=== PATIENT | female | born 1935 | race Caucasian/White ===

== ENCOUNTER 2018-02-12 13:00 | Inpatient (IN) | payer OTHER, MEDICARE ==
[~2018-02-12] VITALS: Ht 157.5 cm; Wt 42.7 kg
--- NOTE | 2018-02-12 13:33 | PD ---
HPI Chief Complaint: Perera act Time Seen by Provider: 13:23 Travel History International Travel<30 days: No Contact w/Intl Traveler<30days: No Traveled to known affect area: No History of Present Illness HPI The patient was seen and examined in the presence of the nurse. This is an 82- year-old demented patient who is brought in under police Perera act. According to the daughter, she made suicidal statements. Patient appears quite demented and is not able to provide any useful history or review of systems. She denies any specific medical complaint. [facility] Social History Alcohol Use: No Tobacco Use: No Substance Use: No Allergies-Medications (Allergen,Severity, Reaction): Coded Allergies: No Known Allergies (Unverified , 02/12/18) Reported Meds & Prescriptions Reported Meds & Active Scripts Active Reported Aspirin 81 Mg Chew 81 Mg CHEW ONCE Review of Systems ROS Limitations: Uncooperative, Psychotic, Poor Historian Physical Exam Narrative GENERAL: Feisty elderly well-developed patient in no apparent distress. SKIN: Focused skin assessment reveals no rash and nodules. Skin is Warm and dry. HEAD: Atraumatic. Normocephalic. EYES: Pupils equal and round. No scleral icterus. No injection or drainage. ENT: No nasal bleeding or discharge. Mucous membranes pink and moist. NECK: Trachea midline. No JVD. CARDIOVASCULAR: Regular rate and rhythm. No murmur appreciated. RESPIRATORY: No accessory muscle use. Clear to auscultation. Breath sounds equal bilaterally. GASTROINTESTINAL: Abdomen soft, non-tender, nondistended. Hepatic and splenic margins not palpable. MUSCULOSKELETAL: No obvious deformities. No clubbing. No cyanosis. No edema. NEUROLOGICAL: Awake and alert. No obvious cranial nerve deficits. Motor grossly within normal limits. Normal speech. PSYCHIATRIC: Agitated mood and affect; insight and judgment poor. Data Data Last Documented VS Vital Signs Date Time Temp Pulse Resp B/P (MAP) Pulse Ox O2 Delivery O2 Flow Rate FiO2 02/12/18 13:36 97.1 97 16 165/77 (106) 99 Orders Orders Complete Blood Count With Diff (02/12/18 13:27) Comprehensive Metabolic Panel (02/12/18 13:27) Thyroid Stimulating Hormone (02/12/18 13:27) Urinalysis - C+S If Indicated (02/12/18 13:27) Iv Access Insert/Monitor (02/12/18 13:27) Cath For Specimen (02/12/18 13:27) Psych Screen (02/12/18 13:27) Drug Screen, Random Urine (02/12/18 13:27) Alcohol (Ethanol) (02/12/18 13:27) Labs Laboratory Tests Test 02/12/18 13:30 02/12/18 14:20 White Blood Count 8.3 TH/MM3 Red Blood Count 4.59 MIL/MM3 Hemoglobin 14.6 GM/DL Hematocrit 43.8 % Mean Corpuscular Volume 95.4 FL Mean Corpuscular Hemoglobin 31.8 PG Mean Corpuscular Hemoglobin Concent 33.3 % Red Cell Distribution Width 13.8 % Platelet Count 235 TH/MM3 Mean Platelet Volume 9.4 FL Neutrophils (%) (Auto) 74.6 % Lymphocytes (%) (Auto) 14.3 % Monocytes (%) (Auto) 10.3 % Eosinophils (%) (Auto) 0.4 % Basophils (%) (Auto) 0.4 % Neutrophils # (Auto) 6.2 TH/MM3 Lymphocytes # (Auto) 1.2 TH/MM3 Monocytes # (Auto) 0.9 TH/MM3 Eosinophils # (Auto) 0.0 TH/MM3 Basophils # (Auto) 0.0 TH/MM3 CBC Comment DIFF FINAL Differential Comment Blood Urea Nitrogen 21 MG/DL Creatinine 0.69 MG/DL Random Glucose 106 MG/DL Total Protein 8.1 GM/DL Albumin 3.9 GM/DL Calcium Level 9.3 MG/DL Alkaline Phosphatase 85 U/L Aspartate Amino Transf (AST/SGOT) 46 U/L Alanine Aminotransferase (ALT/SGPT) 55 U/L Total Bilirubin 0.3 MG/DL Sodium Level 139 MEQ/L Potassium Level 4.0 MEQ/L Chloride Level 105 MEQ/L Carbon Dioxide Level 27.2 MEQ/L Anion Gap 7 MEQ/L Estimat Glomerular Filtration Rate 81 ML/MIN Thyroid Stimulating Hormone 3rd Gen 1.280 uIU/ML Ethyl Alcohol Level LESS THAN 3 MG/DL Urine Color YELLOW Urine Turbidity CLEAR Urine pH 7.0 Urine Specific [place] 1.008 Urine Protein NEG mg/dL Urine Glucose (UA) NEG mg/dL Urine Ketones NEG mg/dL Urine Occult Blood NEG Urine Nitrite NEG Urine Bilirubin NEG Urine Urobilinogen LESS THAN 2.0 MG/DL Urine Leukocyte Esterase NEG Urine RBC 1 /hpf Urine WBC LESS THAN 1 /hpf Urine Mucus FEW /lpf Microscopic Urinalysis Comment CULT NOT INDICATED Urine Opiates Screen NEG Urine Barbiturates Screen NEG Urine Amphetamines Screen NEG Urine Benzodiazepines Screen NEG Urine Cocaine Screen NEG Urine Cannabinoids Screen NEG MDM Medical Decision Making Medical Screen Exam Complete: Yes Emergency Medical Condition: Yes Medical Record Reviewed: Yes Differential Diagnosis Depression with psychotic features, exacerbation of dementia, suicidal ideation Narrative Course I have reviewed the patient's electronic medical record. I reviewed the Perera act form I've ordered medical clearance workup to include labs and urine studies Psych screen has been ordered as she presents under Perera act CBC and metabolic studies are normal TSH is normal Alcohol and tox screen are negative Patient is is medically stable as I can make her. She is awaiting psychiatric evaluation Diagnosis Primary Impression: Dementia with psychosis Jonn Ahn MD Feb 12, 2018 13:33
[2018-02-12 13:36] VITALS: BP 165/77; PULSE 97; RESP 16; TEMP 97.1; O2SAT 99
[2018-02-12 14:09] LABS: AUTOMATED NEUTROPHIL # 6.2 TH/MM3 (1.8-7.7); BASOPHIL % 0.4 % (0.0-2.0); EOSINOPHIL % 0.4 % (0.0-4.0); HEMATOCRIT 43.8 % (35.0-46.0); HEMOGLOBIN 14.6 GM/DL (11.6-15.3); LYMPH % 14.3 % (9.0-44.0); LYMPHOCYTE # 1.2 TH/MM3 (1.0-4.8); MEAN CELL VOLUME 95.4 FL (80.0-100.0); MEAN CORPUSCULAR HEMOGLOBIN 31.8 PG (27.0-34.0); MEAN CORPUSCULAR HGB CONC 33.3 % (32.0-36.0); MEAN PLATELET VOLUME 9.4 FL (7.0-11.0); MONO % 10.3 % (0.0-8.0); MONOCYTE # 0.9 TH/MM3 (0-0.9); NEUT % 74.6 % (16.0-70.0); PLATELET COUNT 235 TH/MM3 (150-450); RED BLOOD COUNT 4.59 MIL/MM3 (4.00-5.30); RED CELL DISTRIBUTION WIDTH 13.8 % (11.6-17.2); WHITE BLOOD COUNT 8.3 TH/MM3 (4.0-11.0)
[2018-02-12 14:26] LABS: ALBUMIN 3.9 GM/DL (3.4-5.0); ALT (GPT) 55 U/L (10-53); AST (GOT) 46 U/L (15-37); BICARBONATE 27.2 MEQ/L (21.0-32.0); BLOOD UREA NITROGEN 21 MG/DL (7-18); CALCIUM 9.3 MG/DL (8.5-10.1); CHLORIDE 105 MEQ/L (98-107); CREATININE 0.69 MG/DL (0.50-1.00); GLOMERULAR FILTRATION RATE 81 ML/MIN (>89); GLUCOSE,RANDOM 106 MG/DL (74-106); SODIUM (NA) 139 MEQ/L (136-145)
[2018-02-12 14:36] LABS: ALKALINE PHOSPHATASE 85 U/L (45-117); TOTAL BILIRUBIN ADULT 0.3 MG/DL (0.2-1.0); TOTAL PROTEIN 8.1 GM/DL (6.4-8.2)
[2018-02-12 14:44] LABS: BILIRUBIN, URINE NEG (NEG); BLOOD, URINE NEG (NEG); GLUCOSE,URINE NEG (NEG); KETONE, URINE NEG (NEG); MUCUS URINE FEW /lpf (OCC); NITRITE,URINE NEG (NEG); URINE COLOR YELLOW (YELLW/STRAW); URINE LEUKOCYTE ESTERASE NEG (NEG)
[2018-02-12] MEDS ORDERED: ASPI-516 CHEW (15:41)
[2018-02-13 04:29] VITALS: BP 170/82; PULSE 87; RESP 18; O2SAT 97
[2018-02-13 05:15] VITALS: BP 142/72; PULSE 60; RESP 16; TEMP 98.5; O2SAT 98
[2018-02-13] MEDS ORDERED: ACETAMINOPHEN 325 MG TAB PO PRN (06:00)
[2018-02-13] MEDS ORDERED: diphenhydrAMINE HCL 50 MG CAP PO PRN (06:00)
[2018-02-13] MEDS ORDERED: diphenhydrAMINE HCL 50 MG/ML VIAL IM PRN (06:00)
[2018-02-13] MEDS ORDERED: diphenhydrAMINE HCL 50 MG/ML VIAL - HS PRN IM (06:00)
[2018-02-13] MEDS ORDERED: MAGNESIUM HYDROXIDE SUSP 30 ML CUP PO PRN (06:00)
[2018-02-13] MEDS ORDERED: ALUMINUM/MAGNESIUM/SIMETH 30 ML CUP PO PRN (06:00)
[2018-02-13] MEDS ORDERED: diphenhydrAMINE HCL 50 MG CAP - HS PRN PO (06:00)
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
[2018-02-13 18:52] VITALS: BP 124/66; PULSE 73; RESP 16; TEMP 98.6; O2SAT 96
[2018-02-14 06:09] VITALS: BP 156/70; PULSE 72; RESP 16; TEMP 97.8; O2SAT 97
[2018-02-14] MEDS ORDERED: PILL SPLITTER OTHER PRN (13:00)
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
[2018-02-14 18:31] VITALS: BP 140/72; PULSE 76; RESP 18; TEMP 98; O2SAT 98
[2018-02-14] MEDS: QUEtiapine FUMARATE 25 MG TAB PO SCH (21:00)
[2018-02-15 06:26] VITALS: BP 147/75; PULSE 70; RESP 17; TEMP 97.5; O2SAT 98
[2018-02-15] MEDS: QUEtiapine FUMARATE 25 MG TAB PO SCH ×2 (09:00→20:41)
[2018-02-15 09:05] LABS: BICARBONATE 26.5 MEQ/L (21.0-32.0); BLOOD UREA NITROGEN 15 MG/DL (7-18); CALCIUM 9.2 MG/DL (8.5-10.1); CHLORIDE 106 MEQ/L (98-107); CREATININE 0.77 MG/DL (0.50-1.00); GLOMERULAR FILTRATION RATE 72 ML/MIN (>89); GLUCOSE,RANDOM 161 MG/DL (74-106); SODIUM (NA) 140 MEQ/L (136-145)
[2018-02-15 09:06] LABS: CHOLESTEROL 224 MG/DL (120-200)
[2018-02-15 09:10] LABS: CHOLESTEROL/ HDL RATIO 2.94 RATIO; HDL CHOLESTEROL 76.1 MG/DL (40.0-60.0); LDL CHOLESTEROL 136 MG/DL (0-99); TRIGLYCERIDES 62 MG/DL (42-150)
--- NOTE | 2018-02-15 13:12 | PD.CONS ---
HPI Service [facility] Consult Requested By Reason for Consult History of dementia, ID 10 years ago with bypass, elevated BP Primary Care Physician Unknown Diagnoses: History of Present Illness 82-year-old female Perera acted by police and brought to hospital after patient reportedly made suicidal statements who are witnessed by daughter. Patient has history of underlying dementia, ID 10 years ago, status post CABG. [facility] has been consulted due to her cardiac history and elevated BP. Patient is seen and examined sitting up to chair. She is awake and alert, oriented to self reports he does not know what year it is or the date. She denies any pain or discomfort , denies any chest pain, cough, shortness of breath, fevers, chills, nausea, vomiting, diarrhea, headache, dizziness or lightheadedness. She has a very poor historian and is truly unable to provide any reliable history. Discussed with nurse who is made contact with daughter to verify list of medications. Patient apparently has only been on low-dose aspirin following ID as she has refused to take any other medications. Review of Systems Except as stated in HPI: all other systems reviewed are Neg Past Family Social History Allergies: Coded Allergies: No Known Allergies (Unverified , 02/12/18) Past Medical History Gathered from EMR Dementia ID Past Surgical History Gathered from EMR CABG Reported Medications Reported Meds & Active Scripts Active Reported Aspirin 81 Mg Chew 81 Mg CHEW ONCE Active Ordered Medications Current Medications Medications (Trade) Dose Ordered Sig/Esme Route Start Time Stop Time Status Last Admin (Atarax) 50 mg Q6H PRN PO 02/13/18 06:00 (Benadryl) 50 mg Q6H PRN PO 02/13/18 06:00 (Benadryl Inj) 50 mg Q6H PRN IM 02/13/18 06:00 (Benadryl) 50 mg HS PRN PO 02/13/18 06:00 (Benadryl Inj) 50 mg HS PRN IM 02/13/18 06:00 (Tylenol) 650 mg Q4H PRN PO 02/13/18 06:00 (Milk Of Magnesia Liq) 30 ml DAILY PRN PO 02/13/18 06:00 (Mag-Al Plus Susp Liq) 30 ml Q6H PRN PO 02/13/18 06:00 (Aricept) 5 mg HS PO 02/15/18 21:00 (SEROquel) 12.5 mg BID PO 02/14/18 21:00 02/15/18 09:00 (Pill Splitter) 1 ea UNSCH PRN OTHER 02/14/18 13:00 (Norvasc) 5 mg DAILY PO 02/15/18 13:15 02/15/18 13:15 Family History Unable to obtain as patient is a poor historian Social History Unable to obtain as patient is a poor historian Physical Exam Vital Signs Vital Signs Date Time Temp Pulse Resp B/P (MAP) Pulse Ox O2 Delivery O2 Flow Rate FiO2 02/15/18 06:26 97.5 70 17 147/75 (99) 98 02/14/18 18:31 98.0 76 18 140/72 (94) 98 Physical Exam GENERAL: This is a well-nourished, well-developed patient, in no apparent distress, appears stated age. SKIN: No rashes, ecchymoses or lesions. Cool and dry. HEAD: Atraumatic. Normocephalic. EYES: Pupils equal round and reactive. Extraocular motions intact. No scleral icterus. No injection or drainage. ENT: Nose without bleeding, purulent drainage. Throat without erythema. Airway patent. NECK: Trachea midline. No JVD, supple. CARDIOVASCULAR: Regular rate and rhythm without murmurs, gallops, or rubs. RESPIRATORY: Clear to auscultation. Breath sounds equal bilaterally. No wheezes , rales, or rhonchi. GASTROINTESTINAL: Abdomen soft, non-tender, nondistended. Normoactive bowel sounds. No guarding. MUSCULOSKELETAL: Extremities without clubbing, cyanosis, or edema. No joint tenderness, effusion, or edema noted. No calf tenderness. NEUROLOGICAL: Awake and alert oriented to self. Cranial nerves II through XII grossly intact. Motor and sensory grossly within normal limits. 4/5 muscle strength in all muscle groups. Normal speech. Laboratory Laboratory Tests Test 02/15/18 08:15 Blood Urea Nitrogen 15 Creatinine 0.77 Random Glucose 161 Calcium Level 9.2 Sodium Level 140 Potassium Level 3.7 Chloride Level 106 Carbon Dioxide Level 26.5 Anion Gap 8 Estimat Glomerular Filtration Rate 72 Triglycerides Level 62 Cholesterol Level 224 LDL Cholesterol 136 HDL Cholesterol 76.1 Cholesterol/HDL Ratio 2.94 Result Diagram: 02/12/18 1330 02/15/18 0815 Assessment and Plan Assessment and Plan 82-year-old female Perera acted by police and brought to hospital after patient reportedly made suicidal statements who are witnessed by daughter. Patient has history of underlying dementia, ID 10 years ago, status post CABG. [facility] has been consulted due to her cardiac history and elevated BP. Dementia Alzheimer's - Treatment per psychiatry, greatly appreciate it Hx ID s/p CABG HTN, uncontrolled HLD - Reportedly only taking ASA at home per daughter - Continue low dose ASA, will add Norvasc 5mg daily, monitor BP and HR for response - Lipid profile collected with LDL 136, recheck fasting labs for accurate levels, hold off on statin due to mildly elevated LFT's DVT prophylaxis-ambulation Discussed with nurse. Thank you for this consultation, will continue to follow along. Delvis Wood Feb 15, 2018 13:12
[2018-02-15] MEDS: amLODIPine BESYLATE 5 MG TAB PO SCH (13:15)
--- NOTE | 2018-02-15 13:30 | HHI.PYPN ---
Subjective Remarks Patient seen for follow, chart reviewed. Discussion nursing staff reported the patient refuse medications last evening but was able to take them this morning. She stated this morning that people were trying to kill her last evening. Patient was found eating lunch noted B, cooperative. Patient states that she was feeling good today and mentions that "someone blame me for something less evening" but did not want to elaborate. Patient continues to be alert and oriented only to person, no behavioral disturbances. Patient denies any perceptional services or delusions during interview today. Review of Systems Except as stated in HPI: all other systems reviewed are Neg Mental Status Examination Appearance: Disheveled Consciousness: Alert Orientation: Person Motor Activity: Other (use his walker) Speech: Unremarkable Language: Adequate Fund of Knowledge: Adequate (fair) Attention and Concentration: Other (Fair) Memory: Impaired Mood: Appropriate Affect: Appropriate Thought Process & Associations: Disorganized (At times) Thought Content: Ideas of reference Hallucination Type: None Delusion Type: Paranoid (Denied today) Suicidal Ideation: Yes (Denied today) Suicidal Plan: No Suicidal Intention: No Homicidal Ideation: No Homicidal Plan: No Homicidal Intention: No Insight: Poor Judgment: Poor Results Labs Labs reviewed Test 02/15/18 08:15 Blood Urea Nitrogen 15 MG/DL Creatinine 0.77 MG/DL Random Glucose 161 MG/DL Calcium Level 9.2 MG/DL Sodium Level 140 MEQ/L Potassium Level 3.7 MEQ/L Chloride Level 106 MEQ/L Carbon Dioxide Level 26.5 MEQ/L Anion Gap 8 MEQ/L Estimat Glomerular Filtration Rate 72 ML/MIN Triglycerides Level 62 MG/DL Cholesterol Level 224 MG/DL LDL Cholesterol 136 MG/DL HDL Cholesterol 76.1 MG/DL Cholesterol/HDL Ratio 2.94 RATIO Vitals/IOs Vital Signs Date Time Temp Pulse Resp B/P (MAP) Pulse Ox O2 Delivery O2 Flow Rate FiO2 02/15/18 06:26 97.5 70 17 147/75 (99) 98 02/13/18 04:29 Room Air Assessment & Plan Problem List: (1) ALZHEIMER'S DISEASE WITH LATE ONSET ICD Codes: G30.1 - ALZHEIMER'S DISEASE WITH LATE ONSET (2) DEMENTIA IN OTH DISEASES CLASSD ELSWHR W BEHAVIORAL DISTURB ICD Codes: F02.81 - DEMENTIA IN OTH DISEASES CLASSD ELSWHR W BEHAVIORAL DISTURB Assessment & Plan Patient this time continues to be alert and oriented only to person likely secondary to neurocognitive deficits from dementia. Patient not endorsing any paranoid delusions during interview but what did mention this morning to nursing staff. Patient was recently started on quetiapine 12.5 mg p.o. twice daily. We will continue current treatment regimen as patient began taking this morning. Continue rest of medications. Continue monitor mood and behavior. Discharge planning in progress. Justification for Cont. Inpt. At risk for further decompensation if at lower level of care Discharge Planning To be determined Request HC Surrog/Guard Advoc?: Yes Doug Gross MD Feb 15, 2018 13:30
--- NOTE | 2018-02-15 16:12 | EKG ---
Date Performed: 02/14/2018 Time Performed: 13:47:15 PTAGE: 82 years EKG: Sinus rhythm BORDERLINE RIGHT AXIS DEVIATION BORDERLINE ECG NO PREVIOUS TRACING DOCTOR: Herson Soares Interpretating Date/Time 02/15/2018 16:09:01
[2018-02-15 17:30] LABS: HEMOGLOBIN A1C 5.2 % (4.3-6.0)
[2018-02-15] MEDS: hydrOXYzine HCL 50 MG TAB PO PRN (18:35)
[2018-02-15] MEDS: DONEPEZIL HCL 5 MG TAB PO SCH (20:41)
[2018-02-16 06:01] VITALS: BP 135/65; PULSE 64; RESP 16; TEMP 97.7; O2SAT 96
[2018-02-16] MEDS: QUEtiapine FUMARATE 25 MG TAB PO SCH ×2 (09:08→20:25)
[2018-02-16] MEDS: ASPIRIN EC 81 MG TABEC PO SCH (09:08)
[2018-02-16] MEDS: amLODIPine BESYLATE 5 MG TAB PO SCH (09:08)
--- NOTE | 2018-02-16 13:35 | HHI.PR ---
Subjective Remarks Follow-up visit for hypertension, hyperlipidemia, history of MN and CABG. Patient seen and examined in her room, pleasantly confused and oriented only to self. Denies any fevers, chills, nausea, vomiting, diarrhea, headache, dizziness, lightheadedness, shortness of breath, cough or chest pain. She reports that she is doing well and is seen ambulating in her room without assistance. Discussed with nurse who does not voice any events overnight. Objective Vitals Vital Signs Date Time Temp Pulse Resp B/P (MAP) Pulse Ox O2 Delivery O2 Flow Rate FiO2 02/16/18 06:01 97.7 64 16 135/65 (88) 96 Result Diagram: 02/12/18 1330 02/15/18 0815 Objective Remarks GENERAL: This is a well-nourished, well-developed patient, in no apparent distress, appears stated age. SKIN: No rashes, ecchymoses or lesions. Cool and dry. HEAD: Atraumatic. Normocephalic. EYES: Pupils equal round and reactive. No scleral icterus. No injection or drainage. ENT: Nose without bleeding, purulent drainage. Throat without erythema. Airway patent. NECK: Trachea midline. No JVD, supple. CARDIOVASCULAR: Regular rate and rhythm without murmurs, gallops, or rubs. RESPIRATORY: Clear to auscultation. Breath sounds equal bilaterally. No wheezes , rales, or rhonchi. GASTROINTESTINAL: Abdomen soft, non-tender, nondistended. Normoactive bowel sounds. No guarding. MUSCULOSKELETAL: Extremities without clubbing, cyanosis, or edema. No joint tenderness, effusion, or edema noted. No calf tenderness. NEUROLOGICAL: Awake and alert oriented to self. Cranial nerves II through XII grossly intact. 4/5 muscle strength in all muscle groups. Normal speech. A/P Assessment and Plan 82-year-old female Perera acted by police and brought to hospital after patient reportedly made suicidal statements who are witnessed by daughter. Patient has history of underlying dementia, MN 10 years ago, status post CABG. [facility] has been consulted due to her cardiac history and elevated BP. Dementia Alzheimer's - Treatment per psychiatry, greatly appreciated Hx MN s/p CABG HTN, controlled HLD -Continue low-dose aspirin, continue Norvasc 5 mg daily -Blood pressure and heart rate stable -Recheck fasting lipid profile, due to age and increased LFT's would recommend dietary and lifestyle measures for lipid control Increased LFT's -Mildly increased AST and ALT, recheck liver function as well as hepatitis panel DVT prophylaxis-ambulation Discussed with nurse. Delvis Wood Feb 16, 2018 13:35
--- NOTE | 2018-02-16 14:08 | HHI.PYPN ---
Subjective Remarks Patient seen for follow, chart reviewed. Discussion nursing staff reported the patient has not had any behavioral issues at it, pleasant with staff. Patient was found in the room noted, cooperative. Patient states she is feeling "great " when asked about having been visited by nursing facility staff patient did not recall having made any one this morning. Patient continued to be alert and oriented only to person. Patient with no behavioral disturbances since admission. Review of Systems Except as stated in HPI: all other systems reviewed are Neg Mental Status Examination Appearance: Appropriate Consciousness: Alert Orientation: Person Motor Activity: Other (use his walker) Speech: Unremarkable Language: Adequate Fund of Knowledge: Adequate (fair) Attention and Concentration: Other (Fair) Memory: Impaired Mood: Appropriate Affect: Appropriate Thought Process & Associations: Disorganized (At times), Tangential Thought Content: Appropriate Hallucination Type: None Delusion Type: None Suicidal Ideation: No Suicidal Plan: No Suicidal Intention: No Homicidal Ideation: No Homicidal Plan: No Homicidal Intention: No Insight: Poor Judgment: Poor Results Vitals/IOs Vital Signs Date Time Temp Pulse Resp B/P (MAP) Pulse Ox O2 Delivery O2 Flow Rate FiO2 02/16/18 06:01 97.7 64 16 135/65 (88) 96 02/13/18 04:29 Room Air Assessment & Plan Problem List: (1) ALZHEIMER'S DISEASE WITH LATE ONSET ICD Codes: G30.1 - ALZHEIMER'S DISEASE WITH LATE ONSET (2) DEMENTIA IN OTH DISEASES CLASSD ELSWHR W BEHAVIORAL DISTURB ICD Codes: F02.81 - DEMENTIA IN OTH DISEASES CLASSD ELSWHR W BEHAVIORAL DISTURB Assessment & Plan Patient this time has not had any behavioral disturbances admission, no delusional material elicited, has been calm and cooperative, adherent to medications. We will continue patient on current treatment continue monitor mood and behavior. Nursing facility representatives came to visit with patient. Patient was accepted and pending only paperwork from patient's daughter to have patient to be discharged to this facility; pending finalization of this process. Discharge planning in progress. Justification for Cont. Inpt. At risk of further decompensation at lower level of care Request HC Surrog/Guard Advoc?: Yes Doug Gross MD Feb 16, 2018 14:08
[2018-02-16 15:48] VITALS: BP 105/57; PULSE 78; RESP 16; TEMP 98.4; O2SAT 98
[2018-02-16 17:27] VITALS: BP 142/72; PULSE 77; RESP 18; TEMP 98.8; O2SAT 95
[2018-02-16] MEDS: DONEPEZIL HCL 5 MG TAB PO SCH (20:25)
[2018-02-17 06:15] VITALS: BP 128/81; PULSE 74; RESP 18; TEMP 97.8; O2SAT 96
[2018-02-17] MEDS: ASPIRIN EC 81 MG TABEC PO SCH (08:32)
[2018-02-17] MEDS: QUEtiapine FUMARATE 25 MG TAB PO SCH (08:32)
[2018-02-17] MEDS: amLODIPine BESYLATE 5 MG TAB PO SCH (08:33)
[2018-02-17 09:24] LABS: ALBUMIN 3.7 GM/DL (3.4-5.0)
[2018-02-17 09:35] LABS: DIRECT BILIRUBIN ADULT 0.1 MG/DL (0.0-0.2); INDIRECT BILIRUBIN 0.3 MG/DL (0.0-0.8); TOTAL BILIRUBIN ADULT 0.4 MG/DL (0.2-1.0); TOTAL PROTEIN 7.8 GM/DL (6.4-8.2)
[2018-02-17] MEDS ORDERED: AMLO5 PO (12:15)
[2018-02-17] MEDS ORDERED: ARIC5TAB6 PO (12:15)
[2018-02-17] MEDS ORDERED: ASPI-516 CHEW (12:15)
[2018-02-17] MEDS ORDERED: SERO25TA PO (12:15)
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
[2018-02-17] MEDS: hydrOXYzine HCL 50 MG TAB PO PRN (13:34)
== END 2018-02-17 15:33 | DRG 57 ==
LOC: NEPD 13:00 → NEDA 02-13 02:53 → H260 02-13 05:15 → H250 02-16 15:30
PROVIDERS: ADMIT Student in an Organized Health Care Education/Training Program; ATTEND Student in an Organized Health Care Education/Training Program
DX: G30.1 Alzheimer's disease with late onset (principal); F02.81 Dementia in other diseases classified elsewhere, unspecified severity, with behavioral disturbance; R45.851 Suicidal ideations; F06.30 Mood disorder due to known physiological condition, unspecified; I10 Essential (primary) hypertension; E78.5 Hyperlipidemia, unspecified; I25.2 Old myocardial infarction; Z95.1 Presence of aortocoronary bypass graft; Z79.82 Long term (current) use of aspirin
CPT/HCPCS: 80048; 80053; 80061; 80074; 80076; 80307; 81001; 83036; 84443; 85025; 93005